=== PATIENT | male | born 1995 | race Caucasian/White ===

== ENCOUNTER 2023-06-13 12:59 | Outpatient (CLI) | payer BC, SELFPAY | END 2023-06-13 13:00 | disposition home or self-care (01) | LOC: LKVREF 13:01 | PROVIDERS: PCP Family Medicine; Visit Provider Family Medicine | DX: R22.1 Localized swelling, mass and lump, neck (principal) | CPT/HCPCS: 84443 ==

== ENCOUNTER 2024-01-19 16:19 | Outpatient (CLI) | payer BC, SELFPAY ==
--- NOTE | 2024-01-19 17:30 | CRLHL7_ITS ---
For Patients: As a result of the Century Cures Act, medical imaging exams and procedure reports are released immediately into your electronic medical record. You may view this report before your referring provider. If you have questions, please contact your health care provider. Indication: Anosmia. Technique: Noncontrast axial CT of the paranasal sinuses with coronal reformats are provided. No comparisons. Findings: The visualized paranasal sinuses are clear. The ostiomeatal complexes are patent bilaterally. The visualized intraorbital contents appear within normal limits. No convincing evidence of suspicious irregularity seen along the cribriform plate. Incidental left-sided pedrito bullosa. Impression: Unremarkable CT of the paranasal sinuses. Please note that all CT scans at this facility use dose modulation, iterative reconstruction, and/or weight-based dosing when appropriate to reduce radiation dose to as low as reasonably achievable. Dictated by Dany Chatterjee MD @ 01/19/2024 5:42:09 PM (Electronically Signed)
== END 2024-01-19 16:20 | disposition home or self-care (01) ==
LOC: CT 16:20
PROVIDERS: PCP Family Medicine; Visit Provider Otolaryngology
DX: R43.0 Anosmia (principal)
CPT/HCPCS: 70486

== ENCOUNTER 2024-02-21 19:16 | Outpatient (CLI) | payer BC, SELFPAY ==
--- NOTE | 2024-04-30 08:59 | W.PM.SLEEP ---
Sleep Study Details Details Interpreting Provider: Gene Date of Sleep Study: 02/21/24 Sleep Study Details: STUDY TYPE:? Home unattended ? BMI:? 39.2 ORDERING PROVIDER:Cesar Mills INDICATION:? Snoring, concerned about sleep apnea ? SLEEP SUMMARY:? 600 minutes monitored RESPIRATORY SUMMARY:? AHI 4.4, left lateral 1.0, supine 4.0, right lateral 9.5 Low oxygen 91 Snoring 73.3% PERIODIC LIMB MOVEMENTS OF SLEEP:? Not record CARDIAC:? Range 45-100, mean 59.2 IMPRESSION:? This study does not demonstrate clinically significant obstructive sleep apnea. It does demonstrate primary snoring RECOMMENDATION: If sleep disorder strongly suspected recommend repeat study and sleep lab.
== END 2024-02-21 19:17 | disposition home or self-care (01) ==
LOC: SLEEP 19:21
PROVIDERS: PCP Family Medicine; Visit Provider Otolaryngology
DX: G47.19 Other hypersomnia (principal)
CPT/HCPCS: 95806

== ENCOUNTER 2024-05-24 13:19 | Outpatient (CLI) | payer BC, SELFPAY | END 2024-05-24 13:20 | disposition home or self-care (01) | PROVIDERS: PCP Family Medicine; Visit Provider Family Medicine | DX: R10.9 Unspecified abdominal pain (principal) | CPT/HCPCS: 80053; 86364 ==